=== PATIENT | female | born 1970 | race Caucasian/White ===

== ENCOUNTER 2023-02-15 14:25 | Emergency (ER) | payer BC, SELFPAY ==
--- NOTE | ~2023-02-15 | XR_ITS ---
XR ankle RT min 3V 02/15/2023 16:18 Indication: Right ankle pain Procedure: 3 views right ankle Comparison: No prior studies for comparison. Findings: There is an oblique distal fibular metadiaphyseal fracture with one cortical bone width lat eral displacement. There is a large amount of lateral soft tissue swelling. There is an avulsion frac ture at the medial malleolus. Impression: 1: Mildly displaced oblique distal fibular fracture. 2: Medial malleolar avulsion fracture. Reviewed, dictated and finalized at location B. Impression: 1: Mildly displaced oblique distal fibular fracture. 2: Medial malleolar avulsion fracture.
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
[2023-02-15 15:05] VITALS: BP 144/83; PULSE 76; RESP 20; TEMP 37.2; O2SAT 100
== END 2023-02-15 17:00 | disposition home or self-care (01) ==
PROVIDERS: Emergency Provider Nurse Practitioner Family; PCP Family Medicine
DX: S82.51XA Displaced fracture of medial malleolus of right tibia, initial encounter for closed fracture (principal); V18.4XXA Pedal cycle driver injured in noncollision transport accident in traffic accident, initial encounter
CPT/HCPCS: 29515; 73610; 99214; G0463

== ENCOUNTER 2023-08-09 15:30 | Outpatient (RCR) | payer BC, SELFPAY ==
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
--- NOTE | 2023-07-21 17:09 | OPREHPOC ---
Outpatient Therapy Plan of Care This is a Multidisciplinary Plan of Care that may contain components documented by all disciplines (PT, OT, and ST.) PT Problem 1 PT Problem #1 Knowledge Deficit PT Goal 1 Goal Pt. will be independent with a HEP focusing on ROM and strength. Target Visit 2 PT Problem 2 PT Problem #2 Impaired Range of Motion PT Goal 1 Goal Pt. will present with 15 degrees active right ankle DF ROM to improve gait mechanics. Target Visit 10 PT Problem 3 PT Problem #3 Impaired Strength PT Goal 1 Goal Pt. will complete 20 single limb heel raises on the right with equal arch of motion compared to the left. Target Visit 10 PT Problem 4 PT Problem #4 Impaired Gait PT Goal 1 Goal Pt. with ambulate with equal right and left stance time over level surface and navigate steps with reciprocal pattern. Target Visit 10
--- NOTE | 2023-08-10 09:52 | PTOPDC ---
Assessment and note entered by Julita Beltran, PT Discharge Information Assessment Status Discharge - Pt Not Present Diagnosis right ankle pain, right fibula fx Onset 02/12/23 Assessment PT Clinical Summary Tori has received 3 PT sessions from July 21 to Aug 09. She called today and canceled her remaining appointments, stating financial concerns. At the last PT session, she reported not having any pain and doing most of her normal activities and stairs without any issues. The goals were not addressed. Discharge PT due to pt request. Plan of Care PT Services Indicated No
== END 2023-08-10 11:21 | disposition home or self-care (01) ==
LOC: ANHPT 15:30
PROVIDERS: PCP Family Medicine; Visit Provider Orthopaedic Surgery
DX: S82.401D Unspecified fracture of shaft of right fibula, subsequent encounter for closed fracture with routine healing (principal)
CPT/HCPCS: 97110; 97140; 97161; 97530

== ENCOUNTER 2024-07-21 14:46 | Outpatient (CLI) | payer BC, SELFPAY ==
--- NOTE | ~2024-07-21 | XR_ITS ---
XR knee LT min 4V Ordering provider: El Butler MD History: . M25.562 - Pain in left knee . Comparison: None. FINDINGS: BONES: No acute fracture or dislocation. JOINT SPACES: Slight narrowing of the lateral compartment of the patellofemoral joint. Slight narrowi ng of the lateral compartment of the joint. SOFT TISSUES: Normal. IMPRESSION: No acute osseous abnormality left knee. Mild osteoarthritic changes. Reviewed, dictated and finalized at location A.
== END 2024-07-21 14:47 | disposition home or self-care (01) ==
PROVIDERS: PCP Orthopaedic Surgery; Visit Provider Orthopaedic Surgery
DX: M17.12 Unilateral primary osteoarthritis, left knee (principal)
CPT/HCPCS: 73564

== ENCOUNTER 2025-03-22 09:21 | Outpatient (CLI) | payer BC, SELFPAY ==
--- OUTSIDE RECORDS SUMMARY | 2025-03-22 09:54 | XMS_ITS | Referral Summary ---
Author Organization [facility] [id number] [facility] Address [address] [place] [id number] Care Team Providers Care Rate Marker Name Role Phone Elizabeth Conde NP Primary Care Provider [phone] Allergies Active Allergy Reactions Criticality Noted Date Comments Penicillins Unknown 10/25/2024 Reaction when she was a child Medications tirzepatide, weight loss, (Zepbound) 2.5 mg/0.5 mL pen injector Inject 0.5 mL (2.5 mg total) under the skin every 7 days 2 mL 6 10/25/2024 Active Active Problems No known active problems Social History Tobacco Use Types Packs/Day Years Used Date Smoking Tobacco: Never Tobacco Cessation:Counseling Given: Not Answered Comments Unknown Sex and Gender Information Value Date Recorded Sex Assigned at Not on file Legal Sex Female 12:43 AM TIRE LAYER Gender Identity Not on file Sexual Orientation Not on file Last Filed Vital Signs Vital Sign Reading Time Taken Comments Blood Pressure 128/82 10/25/2024 1:17 PM TIRE LAYER Pulse 103 10/25/2024 1:17 PM TIRE LAYER Temperature - - Respiratory Rate - - Oxygen Saturation - - Inhaled Oxygen Concentration - - Weight 138.2 kg (304 lb 9.6 oz) 10/25/2024 1:17 PM TIRE LAYER Height 177.8 cm (5' 10) 10/25/2024 1:17 PM TIRE LAYER Body Mass Index 43.71 10/25/2024 1:17 PM TIRE LAYER Plan of Treatment Not on file Insurance [facility] Care Teams Rate Marker Relationship Specialty Start Date End Date Elizabeth Conde NP [address] [facility] [address] [place] [address] PCP - General Nurse Practitioner 10/23/24
--- OUTSIDE RECORDS SUMMARY | 2025-03-22 09:54 | XMS_ITS | Clinical Summary ---
Author Organization [place] [id number] [facility] Address [address] [place] [id number] Care Team Providers Care Space Systems Operations Craftsman Name Role Phone Elizabeth Conde NP Primary Care Provider [phone] Allergies Active Allergy Reactions Criticality Noted Date [...] on file Legal Sex Female 12:43 AM FIELD HUMAN RESOURCES MANAGER Gender Identity Not on file Sexual Orientation Not on file Obstetrics History Last Filed Vital Signs Vital Sign Reading Time Taken Comments Blood Pressure 128/82 10/25/2024 1:17 PM FIELD HUMAN RESOURCES MANAGER Pulse 103 10/25/2024 1:17 PM FIELD HUMAN RESOURCES MANAGER Temperature - - Respiratory Rate - - Oxygen Saturation - - Inhaled Oxygen Concentration - - Weight 138.2 kg (304 lb 9.6 oz) 10/25/2024 1:17 PM FIELD HUMAN RESOURCES MANAGER Height 177.8 cm (5' 10) 10/25/2024 1:17 PM FIELD HUMAN RESOURCES MANAGER Body Mass Index 43.71 10/25/2024 1:17 PM FIELD HUMAN RESOURCES MANAGER Plan of Treatment Health Maintenance Due Date Last Done Comments Breast Cancer Screening-Mammogram 1971 Cervical Cancer Screening 1971 Colon Cancer Screening-Colonoscopy 1971 Depression Screening 1971 Hepatitis C Screening 1971 DTaP/Tdap/Td Vaccine (1 - Tdap) 1982 Hepatitis B Screening 1989 Regular Well Visit/Exam 18-64 1989 Zoster Vaccine (1 of 2) 2021 Covid-19 Vaccine (4 - 2023-2 5 season) 2024 10/09/2021, 12/21/2020, 11/23/2020 Influenza Vaccine (Season Ended) 2025 Pneumococcal vaccine <65 Aged Out No longer eligible based on patient's age to complete this topic Insurance [employer] [place] Care Teams Space Systems Operations Craftsman Relationship Specialty Start Date End Date Elizabeth Conde NP [address] [place] [address] PCP - General Nurse Practitioner 10/23/24
[2025-04-04 13:06] VITALS: BMI 41.5
--- NOTE | 2025-04-04 13:06 | P.SLEEP_ITS ---
Sleep Study - Home Unattended Date of Study: 03/22/25 Ordering Provider: Elizabeth Conde APRN Interpreting Provider: Francoise Thornton, DO Home Sleep Study Type: Watch LASHAY Height: 1.78 m Weight: 131.542 kg Body Mass Index: 41.5 Neck Circumference (inches): 16 Solomon: 12 Reason for Sleep Study Daytime hypersomnia Sleep History The patient is a 55 year old female that had a sleep study ordered by her primary care for evaluation of sleep apnea. The patient denies awakening from sleep short of breath. She frequently awakens at night with heartburn, belching or cough. She occasionally snores but is never loud enough that others complain. She frequently has trouble sleeping when she has a cold. She denies waking up gasping for air throughout the night. She rarely has breathing problems at night observed by herself or others. She frequently sweats excessively at night. She rarely has heart palpitations or irregular heartbeats during the night. She occasionally falls asleep during the day but never while driving. He denies sleep paralysis and cataplexy. She occasionally has trouble at school or work due to sleepiness. She occasionally experiences vivid dreamlike scenes upon awakening or falling asleep. She denies feeling afraid of going to sleep. She rarely has nightmares. She occasionally remembers her dreams. She constantly has thoughts racing through her mind. She rarely feels sad or depressed. She frequently has anxiety. She rarely has muscular tension. She occasionally notices parts of her body jerk. She rarely kicks during the night. She rarely has crawling and aching feelings in her legs but occasionally has leg pain during the night. She denies grinding her teeth during sleep and denies awakening with morning jaw pain. She is occasionally bothered by pain during the day and occasionally awakened by pain during the night. She constantly wakes up feeling stiff in the morning. She occasionally wakes up with sore or achy muscles. She occasionally wakes up with pain in the neck, spine and other joints. She goes to bed at 9:30 p.m. on weekdays and at 10:30 p.m. on the weekends. It takes her 30 minutes to fall asleep. She wakes up 2-3 times throughout the night to urinate and it takes her 15 minutes to fall back asleep. She wakes up between 330-5 a.m. on weekdays and at 6:00 a.m. on the weekends. She typically gets 4-5 hours of sleep per night. She will stay in bed for 15 minutes after waking up in the morning. She currently lives with her . She denies consuming any caffeinated beverages within 2 hours of bedtime. She denies engaging in physical exercise before bedtime. She will read before falling asleep. She denies watching television before falling asleep. She denies taking naps in the afternoon or the evening. She denies consuming any caffeinated beverages throughout the day. She denies tobacco, alcohol and recreational drug use. [facility] Past Medical History Medical History Closed right fibular fracture (~02/15/23) Surgical History Surgical History History of dilatation and curettage History of appendectomy History of lumbar discectomy Previous back surgery Family History Family History Mother Thyroid disorder Social History Social History Smoking status: Never smoker Alcohol intake: current Substance use: never Do You Feel Safe in your Home?: Yes Lack of Transportation: No Lack of Food: Never True Current Housing: I Have Housing Concerned About Future Housing: No Difficulty Paying Gas/Electric Bills: No Difficulty Paying for Meds: No Currently Unemployed: No Education: Master's Degree or Higher Difficulty w/ Childcare or Family Care: No Living arrangements: with family Occupation/Education: occupation 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[employer] Gender identity (if verbalized by the patient): Female Sexual Orientation (if Verbalized by the Patient): Straight or Heterosexual Spiritual care concerns: No Agree to blood products: Yes Medications Home Medications ?Medication ?Instructions ?Recorded ?Confirmed ?Type tirzepatide (weight loss) 7.5 7.5 mg (0.5 mL) subcut WEEKLY #2 mL 03/21/25 Rx mg/0.5 mL subcutaneous pen injector (Zepbound) Sleep Procedure The sleep study was completed using WatchPAT a technically adequate device with seven channels: peripheral arterial tone, actigraphy, body position, snore, respiratory movement, pulse oximetry, sleep staging, and heart rate. Prior to using the device, the patient received verbal and written instructions for its application and was provided with the help desk phone number for additional telephonic instruction with 24-hour availability of qualified personnel to answer questions. The study was scored using CMS guidelines. Sleep Architecture The total recording time is 6 hrs, 47 min. The total sleep time is 5 hrs, 41 min. Sleep latency is 19 minutes. REM latency is 78 minutes. The patient had 9 episodes of waking. Sleep architecture shows 22.4% deep sleep, 57.9% light s leep, and (as % Total Sleep Time) showed NREM (Light 57.9%; Deep 22.4%), and a 19.6% stage REM. The patient spent 23.7% of total sleep time in the supine position. Sleep efficiency was 83.78. Respiratory Analysis The overall AHI (pAHI 4%:) is 7.2. The overall AHI (pAHI 3%:) is 14.3. The central AHI is 1.6. The AHI was 12.8 in NREM and 20.7 in REM sleep. The AHI was 33.0 in Supine and 8.6 in Non-supine sleep. Percent of Tae Mariano respirations is 0.0. Oximetry Data The oxygen desaturation index (CAMERON 4%:) is 8.4. The mean saturation is 92%, and the lowest saturation is 76%. Time spent with saturation < 88% is 11.4 minutes. Snoring Profile Snoring average intensity is 41 dB. The patient snored above 45 decibels for 23.6 minutes, 6.9% of sleep time. Cardiac Profile The average pulse rate is 67 beats per minutes. The lowest pulse rate is 45 bpm. The highest pulse rate reported is 99 bpm. Atrial fibrillation was not detected. Premature beats occur <0.1 per minute. Assessment and Plan Assessment and Plan (1) MELVIN (obstructive sleep apnea): Code(s): G47.33 - Obstructive sleep apnea (adult) (pediatric) Status: Acute Assessment and Plan: The patient had an overall AHI of 7.2 with desaturation down to 76%. This is consistent with mild sleep apnea. Due to the severity of the patient's daytime hypersomnia (ESS of 12/24), she qualifies for treatment. I recommend that the patient be prescribed AutoPAP 5-15 cm H2O, CPAP mask/filters/tubing and heated humidity. A mandibular advancement device is also an acceptable treatment option. This should be used with all episodes of sleep.? Compliance should be reviewed within 31-90 days of starting therapy for usage greater than 4 hours per night greater than 70% of the nights. The patient should be asked about symptoms such as?excessive daytime sleepiness, quality of sleep, decreased nocturia, increased?mental functioning such as memory, mood, and concentration. Data The data obtained during this sleep study is adequate for interpretation. Certification This sleep study has been reviewed by a board certified sleep medicine physician.
== END 2025-03-23 10:17 | disposition home or self-care (01) ==
LOC: ANHCSM 09:28
PROVIDERS: PCP Nurse Practitioner Family; Visit Provider Nurse Practitioner Family
DX: G47.30 Sleep apnea, unspecified (principal); G47.33 Obstructive sleep apnea (adult) (pediatric)
CPT/HCPCS: 95800